=== PATIENT | female | born 1995 | race Two or more races ===

== ENCOUNTER 2025-07-28 20:21 | Emergency (ER) | payer MEDICAID, OTHER ==
[~2025-07-28] VITALS: Ht 157.5 cm; Wt 94.9 kg
[2025-07-28 20:27] VITALS: BP 109/54; PULSE 74; RESP 16; TEMP 99; O2SAT 98
--- NOTE | 2025-07-28 21:09 | ED.PDOC ---
HEALTH DATA ANALYST HPI Comments 30 y/o F, presents to the ED for CC of vaginal bleeding. Patient states, she has been experiencing scant vaginal bleeding with associated abdominal cramping onset, x40min PHONE ENGINEER. Patient reports, that she is currently [id number] . Patient endorses, recently being treated for a vaginal infection d/t an ovarian cyst; comments on compliancy with doxycycline. Patient further reports, pain with intercourse. Patient denies active bleeding, vaginal dis charge, passing of tissue, or palpitations. No other symptoms or modifying factors are present at this time. Chief Complaint: Vaginal Bleed Time Seen by MD: 20:50 Reviewed Notes: Nurses Notes, Medications, Allergies Allergies: Coded Allergies: No Known Drug Allergy (Verified Allergy, Unknown, 07/28/25) Information Source: Patient Mode of Arrival: Ambulatory Timing: Minutes Prehospital treatment: None Severity: Moderate Vaginal Discharge: None Vaginal Lesions: None Bleeding Quality: Bright Red, Dark Sexual Activity: Last Consensual [place]: Unknown History of: Current Blood Type: Unknown Associated Signs and Symptoms: Vaginal Bleeding, Abdominal Pain, Cramping Past Medical History PAST MEDICAL HISTORY: Denies Surgical History: Denies all surgeries ESTATE PLANNING DIRECTOR History: Denies all ESTATE PLANNING DIRECTOR Hx Family History Family History: Unknown Social History Smoker: Non-Smoker Alcohol: Denies ETOH Use Drugs: Denies Drug Use Lives In: Home Constitutional: denies: chills, diaphoresis, fatigue, fever, malaise, sweats, weakness, others EENTM: denies: blurred vision, double vision, ear bleeding, ear discharge, ear drainage, ear pain, ear ringing, eye pain, eye redness, hearing loss, mouth pain, mouth swelling, nasal discharge, nose bleeding, nose congestion, nose pain, photophobia, tearing, throat pain, throat swelling, voice changes, others Respiratory: denies: cough, hemoptysis, orthopnea, SOB at rest, shortness of breath, SOB with excertion, stridor, wheezing, others Cardiovascular: denies: chest pain, dizzy spells, diaphoresis, Dyspnea on exertion, edema, irregular heart beat, left arm pain, lightheadedness, palpitations, PND, syncope, others Gastrointestinal: reports: abdominal pain, others (abdominal cramping); denies: abdomen distended, blood streaked bowels, constipated, diarrhea, dysphagia, difficulty swallowing, hematemesis, melena, nausea, poor appetite, poor fluid intake, rectal bleeding, rectal pain, vomiting Genitourinary: reports: abnormal vagina bleeding; denies: burning, dyspareunia, dysuria, flank pain, frequency, hematuria, incontinence, pain, , vagina discharge, urgency, others Neurological: denies: dizziness, fainting, headache, left sided numbness, left sided weakness, numbness, paresthesia, pre-existing deficit, right sided numbness, right sided weakness, seizure, speech problems, tingling, tremors, weakness, others Musculoskeletal: denies: back pain, gout, joint pain, joint swelling, muscle pain, muscle stiffness, neck pain, others Integumetry: denies: bruises, change in color, change in hair/nails, dryness, laceration, lesions, lumps, rash, wounds, others Allergic/Immunocompromised: denies: Difficulty Healing, Frequent Infections, Hives, Itching, others Hematologic/Lymphatic: denies: anemia, blood clots, easy bleeding, easy bruising, swollen glands, others Endocrine: denies: excessive hunger, excessive sweating, excessive thirst, excessive urination, flushing, intolerance to cold, intolerance to heat, unexplained weight gain, unexplained weight loss, others Psychiatric: denies: anxiety, bipolar disorder, depression, hopeless, panic disorder, schizophrenia, sleepless, suicidal, others All Other Systems: Reviewed and Negative Physical Exam General Appearance: No Apparent Distress, Normal HEENT: Normal ENT Inspection, Pharynx Normal Neck: Full Range of Motion, Non-Tender, Normal, Normal Inspection Respiratory: Chest Non-Tender, Lungs Clear, No Accessory Muscle Use, No Respiratory Distress, Normal Breath Sounds Cardiovascular: No Edema, No Murmur, No Gallop, Normal Peripheral Pulses, Regular Rate/Rhythm Breast Exam: Deferred Gastrointestinal: No Organomegaly, Non Tender, No Pulsatile Mass, Normal Bowel Sounds, Soft Genitalia: Deferred Pelvic: Deferred Rectal: Deferred Extremities: No calf tenderness, Normal capillary refill, Normal inspection, Normal range of motion, Non-tender, No pedal edema Musculoskeletal : Apperance: Normal Neurologic: Alert, creative art director II-XII nml as Tested, No Motor Deficits, Normal Affect, Normal Mood, No Sensory Deficits Cerebellar Function: Normal Reflexes: Normal Skin: Dry, Normal Color, Warm Lymphatic: No Adenopathy Was a procedure done? Was a procedure done?: No Differential Diagnosis (ESTATE PLANNING DIRECTOR) Vaginal Bleeding: - Inevitable, UTI, Vaginitis, Other (subchronic hemorrhage, spontaneous ) X-Ray, Labs, Meds, VS Vital Signs Date Time Temp Pulse Resp B/P (MAP) Pulse Ox O2 Delivery O2 Flow Rate FiO2 07/28/25 20:27 99.0 74 16 109/54 98 99.0 Lab Test 07/28/25 21:03 07/28/25 20:42 Range/Units Beta HCG, Quantitative 579160.4 H 1.5-4.2 mIU/mL Urine Color Light-yellow Yellow Urine Clarity Turbid H Clear Urine pH 5.5 5.0-9.0 Urine Specific [place] 1.027 1.001-1.035 Urine Protein Trace H Negative Urine Ketones Trace Negative Urine Blood 2+ H Negative /uL Urine Nitrite Negative Negative Urine Bilirubin Negative Negative Urine Urobilinogen Normal Negative mg/dL Urine Leukocyte Esterase Negative Negative /uL Urine RBC 6 0 - 4 /hpf Urine Microscopic WBC 4 0-5 /HPF Urine Squamous Epithelial Cells Few <5 /hpf Urine Bacteria Few H None Seen /hpf Urine Mucus Few None Seen Urine Glucose Normal Normal mg/dL X-Ray, Labs, Meds, VS Comment Imaging was reviewed by this provider, there is no obvious pathological or acute disease process. Pending radiology review Labs were reviewed by this provider, no abnormalities Vital signs reviewed by this provider, clinically stable Patient states bleeding has slowed down, very minimal Time of 1ST Reevaluation: 21:20 Reevaluation 1ST: Unchanged Patient Education/Counseling: Diagnosis, Treatment, Need For Follow Up (Patient has scheduled ultrasound tomorrow. Advised to call OBGYN tomorrow and follow up as soon as possible. Return to the emergency department two days if symptoms continue.) Family Education/Counseling: Diagnosis, Treatment Departure 1 Departure Time of Disposition: 22:39 Impression: Primary Impression: First trimester bleeding Additional Impressions: Ruptured ovarian cyst Hemorrhagic ovarian cyst Disposition: HOME / SELF CARE / HOMELESS Condition: Fair Discharged With: Self Critical Care Note Critical Care Time?: No Stability Stability form required: No Heart Score Heart Score: Heart Score Response (Comments) Value History N/A 0 EKG N/A 0 Age N/A 0 Risk Factors N/A 0 Troponin N/A 0 Total 0 I personally scribed for FELTON ROMERO ([email or web address]) on 07/28/25 at 21:09. Electronically submitted by Sandy Mcintyre ([email or web address]). FELTON ROMERO Jul 28, 2025 21:09
[2025-07-28 21:16] LABS: Urine Protein, UAD TRACE (Negative)
--- NOTE | 2025-07-28 22:21 | DVH ---
OBSTETRIC ULTRASOUND PRIOR TO 14 WEEKS CLINICAL INDICATION: vag bleed TECHNIQUE: Multiple grayscale ultrasound images were obtained of the pelvis via transabdominal and tr ansvaginal approach for obstetric evaluation. Limited color Doppler and spectral Doppler acquisitions were also obtained. COMPARISON: None FINDINGS: Uterus: 11.5 x 5.3 x 6.8 cm. There is a single intrauterine gestational sac is visualized. A po le is visualized measuring 1.89 cm compatible with an estimated gestational age of 8 weeks, 3 days. cardiac activity is present with heart rate of 177 beats per minute. A normal yolk sac is pres ent. Right adnexa: right ovary 2.6 x 1.4 x 3.5 cm. Normal arterial blood flow in the ovary. No right adne xal mass seen. Left adnexa: left ovary 3.9 x 2.7 x 3.3 cm. Normal arterial blood flow in the ovary. No left adnexal mass seen. Complex cystic lesion in the left ovary measures 2.7 cm. Other: None IMPRESSION: 1. Single living intrauterine with an estimated gestational age of 8 weeks, 5 days, corre sponding to an estimated date of delivery of 03/04/2026. 2. Complex Cystic lesion in the left ovary which could reflect a hemorrhagic cyst.
== END 2025-07-28 22:53 | disposition home or self-care (01) ==
LOC: ER 20:21
DX: O03.4 Incomplete spontaneous abortion without complication (principal); R10.20 Pelvic and perineal pain unspecified side; N83.292 Other ovarian cyst, left side; Z3A.08 8 weeks gestation of pregnancy; Z79.899 Other long term (current) drug therapy
CPT/HCPCS: 36415; 76801; 81001; 84702